=== PATIENT | female | born 1945 | race African-American/Black ===

== ENCOUNTER 2018-09-13 17:52 | Emergency (ER) | payer OTHER ==
[~2018-09-13] VITALS: Ht 162.6 cm; Wt 41.7 kg
--- NOTE | 2018-09-13 18:03 | NUR ---
PT [facility] FROM [facility]; R EYEBROW LAC; PT AAOX2-3, PT ON MONITOR, VSS, NAD NOTED, PENDING ER PROVIDER MARIE
[2018-09-13] MEDS ORDERED: ACETAMINOPHEN ES 500 MG TABLET PO ONE (18:30)
[2018-09-13] MEDS ORDERED: TDAP [DIPH/PERTUSSIS/TET] 0.5 ML VIAL IM ONE ×2 (18:30→19:35)
[2018-09-13 19:25] LABS: BASOPHILS % (AUTO) 0.3 % (0.0-2.0); EOSINOPHILS % (AUTO) 0.1 % (0.0-6.0); HEMATOCRIT 40 % (33-45); HEMOGLOBIN 13.3 g/dL (11.5-14.8); LYMPHOCYTES # (AUTO) 0.9 /CMM (0.8-4.8); LYMPHOCYTES % (AUTO) 8.1 % (20.0-44.0); MEAN CORPUSCULAR HGB CONC 33 g/dl (31.0-36.0); MEAN CORPUSCULAR VOLUME 86 fL (82-100); MONOCYTES # (AUTO) 0.7 /CMM (0.1-1.30); MONOCYTES % (AUTO) 6.2 % (2.0-12.0); NEUTROPHILS # (AUTO) 8.9 /CMM (1.8-8.9); NEUTROPHILS % (AUTO) 85.3 % (43.0-81.0); PLATELET COUNT (AUTO) 393 /CMM (150-450); RED BLOOD CELL COUNT(AUTO) 4.68 MIL/uL (4.0-5.2); WHITE BLOOD COUNT (AUTO) 10.5 K/uL (4.3-11.0)
[2018-09-13 19:33] LABS: CALCIUM, SERUM 9.6 mg/dL (8.5-10.1); CARBON DIOXIDE 31 mmol/L (21-32); CHLORIDE 100 mmol/L (98-107); CREATININE 0.6 mg/dL (0.6-1.3); GLUCOSE 103 mg/dL (74-106); SODIUM SERUM 135 mmol/L (136-145); UREA NITROGEN, BLOOD 18 mg/dL (7-18)
[2018-09-13] MEDS ORDERED: ACETAMINOPHEN ES 500 MG TABLET ONE (19:35)
[2018-09-13 19:42] LABS: ALANINE AMINOTRANSFERASE 47 U/L (12-78); ALBUMIN 3.3 g/dL (3.4-5.0); ALKALINE PHOSPHATASE 102 U/L (46-116); ASPARTATE AMINOTRANSFERASE 72 U/L (15-37); BILIRUBIN,DIRECT 0.1 mg/dL (0.0-0.2); BILIRUBIN,TOTAL 0.3 mg/dL (0.2-1.0); TOTAL PROTEIN, SERUM 8.2 g/dL (6.4-8.2)
--- NOTE | 2018-09-13 20:37 | NUR ---
PT TAKEN TO RADIOLOGY VIA [facility]
[2018-09-13] MEDS ORDERED: LIDOCAINE 1% INJ 50 ML MDV IJ ONE (20:38)
--- NOTE | 2018-09-13 20:50 | NUR ---
PT RETURNED FROM CT. PT TOLERATED WELL.
--- NOTE | 2018-09-13 20:51 | NUR ---
[facility] AT BEDSIDE FOR WOUND CARE
--- NOTE | 2018-09-13 21:07 | NUR ---
CHARISSA FERGUSON (SON) [phone]
--- NOTE | 2018-09-13 22:27 | NUR ---
CALLED [facility] FOR BLS TRANSPORT OF THIS PATIENT TO [facility]
[2018-09-13 23:29] VITALS: BP 125/73
--- NOTE | 2018-09-13 23:40 | NUR ---
RECEIVED CALL FROM [facility], ETA FOR TRANSPORT IS [phone]
--- NOTE | 2018-09-14 00:06 | NUR ---
REPORT GIVEN TO HARMEET ZAMUDIO AT [facility]
== END 2018-09-14 00:21 | disposition home or self-care (01) ==
LOC: ER 18:27
DX: S01.111A Laceration without foreign body of right eyelid and periocular area, initial encounter (principal); S01.511A Laceration without foreign body of lip, initial encounter; F41.9 Anxiety disorder, unspecified; G31.83 Neurocognitive disorder with Lewy bodies; F02.80 Dementia in other diseases classified elsewhere, unspecified severity, without behavioral disturbance, psychotic disturbance, mood disturbance, and anxiety; I10 Essential (primary) hypertension; F32.9 Major depressive disorder, single episode, unspecified; Z86.73 Personal history of transient ischemic attack (TIA), and cerebral infarction without residual deficits; W05.0XXA Fall from non-moving wheelchair, initial encounter; Y93.89 Activity, other specified; Y92.89 Other specified places as the place of occurrence of the external cause; Y99.8 Other external cause status
CPT/HCPCS: 36415; 70450-TC; 70486-TC; 71045-TC; 71250-TC; 80048-TC; 80076-TC; 84484-TC; 85025-TC; 90715; A6402; J3490